=== PATIENT | female | born 1945 | race Caucasian/White ===

== ENCOUNTER 2021-04-17 19:33 | Emergency (ER) | payer MEDICARE, MEDICAID ==
[~2021-04-17] VITALS: Ht 165.1 cm; Wt 89.8 kg
--- NOTE | 2021-04-17 19:40 | NUR ---
Patient to ER bed 8 to gown for evaluation. Side rails up. Report given to LENNOX SESAY.
[2021-04-17 19:41] VITALS: BP_SYST 121
--- NOTE | 2021-04-17 19:45 | NUR ---
ER Dr. THOMAS at bedside examining patient.
[2021-04-17] MEDS ORDERED: methylPREDNISolone SOD SUCC/PF 62.5 MG/ML VIAL IVP ONE (20:00)
[2021-04-17] MEDS ORDERED: FAMOTIDINE PF 20 MG/2 ML VIAL IVP ONE (20:00)
[2021-04-17] MEDS ORDERED: DIPHENHYDRAMINE INJ 50 MG/ML VIAL IVP ONE (20:00)
--- NOTE | 2021-04-17 20:00 | NUR ---
PT BIB AMBULANCE AFTER HAVING AN ALLERGIC REACTION TO [place] SUBSTAINCE. TOOK 2 CLARITON AT HOME WITH SOME RELIEF. BILATERAL ARMS AND THIGHS ARE RED, NO HIVES OR SWELLING NOTED AT THIS TIME. PT DENIES ANY SOB, LUNG SOUNDS CLEAR BILATERALLY. PT PLACED ON BEDSIDE MONITOR, BED IN LOWEST POSITION AND LOCKED AND SIDERAIL UP X 1.
[2021-04-17] MEDS ORDERED: NACL 0.9% 1,000 ML IV ONE ×3 (20:15→21:30)
--- NOTE | 2021-04-17 20:20 | NUR ---
Alejandro brito in [facility] - 04/17/21 at 2059 by [email or web address] .
--- NOTE | 2021-04-17 20:20 | NUR ---
# 20 gauge angiocath placed to LHA. Use of asceptic technique. Opsite placed over site. Blood return noted. Flushed with 10 cc of normal saline. No evidence of infiltration noted. Patient tolerated well.
--- NOTE | 2021-04-17 20:25 | NUR ---
Pt c/o nausea. Verbal order to give Zofran 4 mg IVP, medication given.
[2021-04-17] MEDS ORDERED: ONDANSETRON HCL 4 MG/2 ML VIAL IVP ONE ×2 (20:30→21:15)
[2021-04-17] MEDS ORDERED: ONDANSETRON HCL 4 MG/2 ML VIAL ONE (20:38)
--- NOTE | 2021-04-17 21:19 | NUR ---
PT RESTING MORE COMFORTABLY, REMAINS ON BEDSIDE MONITOR. 1 L OF NS INFUSED, B/P DOWN TO 104/61, SIN AWARE. WILL CONTINUE TO MONITOR
[2021-04-17] MEDS ORDERED: PRED20TA PO (21:31)
[2021-04-17] MEDS ORDERED: ONDA-8 TL (21:34)
[2021-04-17] MEDS ORDERED: EPIN0.3P3 IM (21:34)
[2021-04-17] MEDS ORDERED: DIPH25CA83 PO (21:34)
--- NOTE | 2021-04-17 21:34 | NUR ---
SECOND LITER OF FLUIDS ORDERED BY MD. INFUSING AT THIS TIME. DAUGHTER REMAINS AT BEDSIDE, STATES MOM IS FEELING BETTER.
[2021-04-18] MEDS ORDERED: METO25TA6 PO (00:56)
[2021-04-18 01:05] VITALS: BP_SYST 125
--- NOTE | 2021-04-18 01:18 | NUR ---
Patient given written and verbal discharge instructions and verbalizes understanding. ER MD discussed with patient the results and treatment provided. Patient in stable condition. ID arm band removed. IV catheter removed intact and dressing applied, no active bleeding. Rx of BENADRYL, EPIPEN, LOPRESOR, ZOFRAN, AND PREDNISONE given. Patient educated on pain management and to follow up with PMD. Pain Scale 0. Opportunity for questions provided and answered. Medication side effect fact sheet provided.
== END 2021-04-18 01:18 | disposition home or self-care (01) ==
LOC: SED 19:33
DX: T78.2XXA Anaphylactic shock, unspecified, initial encounter (principal); I10 Essential (primary) hypertension; K21.9 Gastro-esophageal reflux disease without esophagitis; Z79.899 Other long term (current) drug therapy
CPT/HCPCS: 96361; 96374; 96375; 99285; J1200; J2405; J2930; J3490; J7030